=== PATIENT | female | born 1975 ===

== ENCOUNTER 2022-09-16 09:09 | Emergency (ER) | payer OTHER ==
[2022-09-16 09:24] VITALS: BP 129/80; PULSE 80; RESP 16; TEMP 98.6; BMI 19.5
== END 2022-09-16 10:30 | disposition home or self-care (01) ==
LOC: FER 09:09
DX: K21.9 Gastro-esophageal reflux disease without esophagitis (principal)
CPT/HCPCS: 93005; 99281-25